=== PATIENT | male | born 1960 | race Caucasian/White ===

== ENCOUNTER 2025-08-29 18:29 | Emergency (ER) | payer MEDICARE, SELFPAY ==
[2025-08-29 18:34] VITALS: BP 194/121; PULSE 108; RESP 18; TEMP 36.3; O2SAT 97
--- NOTE | 2025-08-29 20:00 | ED.GENADULT ---
HPI - General Adult General Chief complaint: Urogenital-Male Stated complaint: I cant pee, swollen prostate Time Seen by Provider: 08/29/25 18:42 History of Present Illness HPI narrative: This is a 65-year-old male with history of BPH on Flomax presenting for urinary retention. Patient says he was at a football game and drink large soda. He was then unable to urinate. He developed abdominal pressure and came to the ED to be evaluated. He denies dysuria urgency or frequency prior to the urinary retention. He has noticed that his stream is becoming slower over the last several weeks. He has had this happen several times in the past. Urologist is Dr. Che. Related Data Allergies Allergy/AdvReac Type Severity Reaction Status Date / Time No Known Allergies Allergy Verified 08/29/25 18:32 Exam Narrative: patient was evaluated after Katz catheter was placed by nursing staff. APPEARANCE: No apparent distress. Head: atraumatic. EYES: EOMI, NOSE: Atraumatic NECK: Trachea midline RESPIRATORY: No increased rate of breathing CARDIOVASCULAR: RRR, ABDOMINAL: Non-distended Soft nontender no guarding or rebound MUSCULOSKELETAl: No obvious deformities NEURO: Alert. Moving 4/4 extremities SKIN:: Warm, dry. Normal color PSYCHIATRIC: Normal affect Course Vital Signs Vital signs: Vital Signs Temperature 97.4 F L 08/29/25 18:34 Pulse Rate 108 H 08/29/25 18:34 Respiratory Rate 18 08/29/25 18:34 Blood Pressure 194/121 H 08/29/25 18:34 Pulse Oximetry 97 08/29/25 18:34 Oxygen Delivery Room Air 08/29/25 18:34 Temperature 97.4 F L 08/29/25 18:34 Pulse Rate 108 H 08/29/25 18:34 Respiratory Rate 18 08/29/25 18:34 Blood Pressure 194/121 H 08/29/25 18:34 Pulse Oximetry 97 08/29/25 18:34 Oxygen Delivery Room Air 08/29/25 18:34 Medical Decision Making MDM Narrative Medical decision making narrative: -Course: 65-year-old male presenting with acute urinary retention. Bladder scan revealed 750 cc. He was acutely uncomfortable and nursing staff placed a Katz with improvement in his condition. UA sent to the lab. The patient has an hour and a half drive home does not want wait for the results. They will check the my chart and follow-up the results with her own urologist. -DDX includes but is not limited to: BPH, urethral stricture, UTI -Co-morbidities complicating care: BPH Vital Signs Vital Signs: Vital Signs Temperature 97.4 F L 08/29/25 18:34 Pulse Rate 108 H 08/29/25 18:34 Respiratory Rate 18 08/29/25 18:34 Blood Pressure 194/121 H 08/29/25 18:34 Pulse Oximetry 97 08/29/25 18:34 Oxygen Delivery Room Air 08/29/25 18:34 Temperature 97.4 F L 08/29/25 18:34 Pulse Rate 108 H 08/29/25 18:34 Respiratory Rate 18 08/29/25 18:34 Blood Pressure 194/121 H 08/29/25 18:34 Pulse Oximetry 97 08/29/25 18:34 Oxygen Delivery Room Air 08/29/25 18:34 Lab Data Labs: Lab Results 08/29/25 Range/Units 20:32 Urine Color Pending Urine Appearance Pending Urine pH Pending Ur Specific [place] Pending Urine Protein Pending Urine Glucose (UA) Pending Urine Ketones Pending Ur Blood (Man) Pending Urine Nitrate Pending Urine Bilirubin Pending Urine Urobilinogen Pending Leukocyte Esterase Rfl Pending Discharge Plan Discharge Clinical Impression: Acute retention of urine Patient Disposition: Home Condition: Stable Instructions: Antibiotic Form, Katz Catheter Placement and Care (ED) Additional Instructions: You were seen for acute urinary retention. Please follow-up with Dr. Che in the next 3-5 days. If you develop any new or worsening symptoms please return to the ED for re-evaluation. Please check the results. Urinalysis on my chart and follow-up with your urologist on the results. Patient Language: [place] Follow-up/Referrals: Brook,PEYMAN Torres [Primary Care Provider]
[2025-08-29 20:45] LABS: Add Urine Microscopic? YES; Appearance Urine Cloudy (Clear); Glucose Urine UA Negative (Negative); Leukocyte Esterase Ur Negative LEU/UL (Negative); Nitrate Urine Negative (Negative); Non Pathogenic Casts 0-2; Specific Grav Ur 1.016 (1.001-1.035)
== END 2025-08-29 21:23 | disposition home or self-care (01) ==
PROVIDERS: Emergency Provider Emergency Medicine; PCP Physician Assistant
DX: R33.9 Retention of urine, unspecified (principal)
CPT/HCPCS: 51702; 81001; 99283